=== PATIENT | female | born 1970 | race Caucasian/White ===

== ENCOUNTER → 2018-06-07 | Outpatient (CLI) | payer BC ==
--- NOTE | 2018-06-08 04:30 | CN ---
SERVICE DATE: 06/07/2018 INTRODUCTION: This 48-year-old female is well known to me. She underwent laparoscopic gastric bypass in 2001, when I was a surgeon at [facility] in [place]. Her postoperative course was somewhat complicated in that she had 3 or 4 diagnostic laparoscopies post gastric bypass as she lost her weight for what was found to be internal herniations. It is unusual she would have that many, but she did. Those were repaired and she symptomatically got better from each one until the next one recurred. Her symptoms today are hinting of a recurrent internal hernia now. PAST MEDICAL HISTORY: ALLERGIES: The patient has allergies to sulfa. MEDICATIONS: She is on multiple medications. Most complicated one is for lupus. PAST SURGICAL HISTORY: Includes laparoscopic gastric bypass, multiple diagnostic laparoscopies, hysterectomy, panniculectomy, a laparoscopic cholecystectomy, and appendectomy. She has had also bilateral augmentation breast surgery. FAMILY HISTORY AND SOCIAL HISTORY: The patient is . She lives in [place]. She is currently disabled secondary to her lupus. REVIEW OF SYSTEMS: Positive for lupus. Otherwise negative. PHYSICAL EXAMINATION: HEENT: Normal. Chest: Lungs are clear bilaterally. Heart: Normal sinus rhythm. Abdomen: Nontender. No hernias are noted. She has multiple trocar site scars from her previous surgeries. Extremities: Normal. Neurologic: Intact. ASSESSMENT: Chronic abdominal pain. PLAN: She recently had an EGD that did not show any abnormalities in the gastric pouch itself. This was done by a surgeon in [place]. The plan for now is to repeat the diagnostic laparoscopy, specifically looking for recurrence of her internal hernias and/or adhesions that may be causing some of her symptoms. This is scheduled to do at [facility] on 06/08. [facility] /[id number]
== END ==
LOC: DL.GSCL 11:30
CPT/HCPCS: 99203

== ENCOUNTER 2018-06-08 08:51 | Observation (INO) | payer BC ==
[2018-06-08] MEDS ORDERED: Lactated Ringers 1,000 ML IV SCH (09:00)
[2018-06-08] MEDS ORDERED: Sodium Chloride 0.9% 10 ML Syringe FLUSH PRN (12:19)
[2018-06-08] MEDS ORDERED: Glycopyrrolate 0.2 MG/ML 2 ML SDV IV ONE (12:46)
[2018-06-08] MEDS ORDERED: Ondansetron 4 MG/2 ML SDV IV ONE (12:46)
[2018-06-08] MEDS ORDERED: Dexamethasone 4 MG/ML SDV IV ONE (12:46)
[2018-06-08] MEDS ORDERED: fentaNYL 250 MCG/5 ML SDV IV ONE (12:46)
[2018-06-08] MEDS ORDERED: Rocuronium 100 MG/10 ML MDV IV ONE (12:46)
[2018-06-08] MEDS ORDERED: Ketorolac 30 MG/ML SDV IVPUSH ONE (12:46)
[2018-06-08] MEDS ORDERED: Propofol 200 MG/20 ML SDV IV ONE (12:46)
[2018-06-08] MEDS ORDERED: ePHEDrine 50 MG/ML SDV IV ONE (12:46)
[2018-06-08] MEDS ORDERED: Midazolam 1 MG/ML 2 ML SDV IV ONE (12:46)
[2018-06-08] MEDS ORDERED: Neostigmine Methylsulfate 10 MG/10 ML MDV IV ONE (12:46)
[2018-06-08] MEDS: Acetaminophen/oxyCODONE 325-5 MG Tab PO PRN ×3 (13:27→21:48)
[2018-06-08] MEDS: Morphine 2 MG/ML Syringe IVPUSH PRN ×2 (15:07→19:40)
--- NOTE | 2018-06-08 18:01 | OR ---
DATE: 06/08/2018 PREOPERATIVE DIAGNOSES: Abdominal pain, history of multiple internal hernias. POSTOPERATIVE DIAGNOSES: Abdominal pain, history of multiple internal hernias. PROCEDURES: Diagnostic laparoscopy with suture closure of the transverse colon mesenteric defect. ANESTHESIA: General. ESTIMATED BLOOD LOSS: Minimum. SPECIMEN: None. OPERATIVE FINDINGS: Surprisingly normal anatomy and the gastric bypass, Maggy-en- Y seem to be perfectly oriented. She does have a relatively large defect anterior to the Y-limb of the gastric bypass and the defect is in the transverse mesocolon. INDICATION FOR PROCEDURE: This 48-year-old female has had a laparoscopic gastric bypass and has had 2 to 3 episodes of internal herniation that required surgery for fixation. She has similar symptoms to those and presented to my clinic with these complaints. Recent EGD did not show any evidence of problems with the gastric pouch. PROCEDURE IN DETAIL: After adequate preparation, a 5-mm trocar was placed intra- abdominally and the abdomen was insufflated. A 5 mm camera was then introduced, 3 other trocars were then placed under direct vision. Examination of the abdomen did not show any adhesions at all. I was able to find the Y-limb and trace it distally to the ileocecal valve, and then traced it backwards again from the ileocecal valve all the way up to the Maggy-en-Y anastomosis. The duodenal limb is normal. There are no hernias in Cardona space or the mesentery. There is however a defect anteriorly to the Y-limb and the transverse mesocolon. Two #3-0 sutures were used to tack the Y-limb of the intestine to the transverse colon defect to close this completely. No other abnormalities were noted. The liver appeared to be normal. No evidence of body wall hernias. The trocars were removed, abdomen desufflated, and the skin was closed with Monocryl. [facility] /[id number]
[2018-06-09] MEDS: Acetaminophen/oxyCODONE 325-5 MG Tab PO PRN ×2 (01:45→05:51)
--- NOTE | 2018-06-09 07:33 | PCM.SN ---
- Free Text/Narrative Note: Stable POD$1. Pain controlled. PO liquid adequate. Wounds clean and dry. No complaints. Can discharge today. No restrictions on diet or activity. No FU needed. Percocet (#20) given for pain.
== END 2018-06-09 09:30 | disposition home or self-care (01) ==
LOC: DL.SDS 08:51 → DL.MS 12:45
PROVIDERS: ADMIT Surgery; ATTEND Surgery
DX: K95.89 Other complications of other bariatric procedure (principal); G43.909 Migraine, unspecified, not intractable, without status migrainosus; E89.0 Postprocedural hypothyroidism; E66.01 Morbid (severe) obesity due to excess calories; Z87.19 Personal history of other diseases of the digestive system; Z87.891 Personal history of nicotine dependence; Z88.2 Allergy status to sulfonamides; Z79.890 Hormone replacement therapy; Z79.899 Other long term (current) drug therapy
CPT/HCPCS: A9270-GY; J1100; J1885; J2250; J2270; J2405; J2704; J2710; J3010; J3490; J7120